=== PATIENT | male | born 1975 | race Caucasian/White ===

== ENCOUNTER 2023-07-22 06:22 | Inpatient (IN) | payer OTHER, SELFPAY ==
[2023-07-12 08:49] LABS: Hematocrit 47.3 % (39.0-52.0); Hemoglobin 16.6 g/dL (13.0-18.0); Mean Corp Hgb Conc. 35.1 g/dL (33.0-37.0); Mean Corpuscular Hgb 29.9 pg (27.0-31.0); Mean Corpuscular Volume 85.1 fL (80.0-94.0); Mean Platelet Volume 9.8 fL (7.4-10.4); Platelet Count 255 10^3/uL (130-400); Red Blood Cell Count 5.56 10^6/uL (4.70-6.10); Red Cell Dist. Width 12.3 % (11.5-14.5); White Blood Cell Count 6.8 10^3/uL (4.8-10.8)
[2023-07-12 09:03] LABS: INR 1.01; PT 13.5 Sec (11.4-14.6)
[2023-07-12 09:04] LABS: APTT 33.8 Sec (23.4-35.0)
[2023-07-12 09:15] LABS: ALT (SGPT) 46 U/L (0-50); AST (SGOT) 35 U/L (17-59); Albumin 4.5 g/dl (3.5-5.0); Alkaline Phosphatase 73 U/L (38-126); Blood Urea Nitrogen 12 mg/dl (9-20); Carbon Dioxide 28 mmol/L (22-30); Chloride 104 mmol/L (98-107); Glucose 111 mg/dl (70-99); Potassium 4.4 mmol/L (3.5-5.1); Sodium 137 mmol/L (135-145); Total Bilirubin 0.7 mg/dl (0.2-1.3); Total Protein 7.2 g/dl (6.3-8.2); eGFR > 60.00
[2023-07-12 12:48] LABS: Glycohemoglobin (HgbA1c) 6.2 % (4.0-5.6)
[2023-07-22] MEDS: ENTEREG 12 MG PO (07:01)
[2023-07-22] MEDS: TYLENOL 1000 MG PO (07:01)
[2023-07-22] MEDS: HEPARIN 5000 UNITS SC (07:02)
[2023-07-22] MEDS: NORMOSOL-R 1000 IV ×3 (07:06→21:55)
[2023-07-22] MEDS: INVANZ 60 MG IV (07:48)
--- NOTE | 2023-07-22 11:55 | W.IMMPOSTOP ---
Surgical Immed Post Op Note
-
Primary Surgeon: Raphael Tineo MD
Assistants: MICHAEL Crocker and EDMUNDO Smith
Pre-op Diagnosis: Recurrent sigmoid diverticulitis
Post-op Diagnosis: Same
Procedure Performed: Robotic sigmoid resection with intracorporeal anastomosis
Anesthesia Type: GET
Specimen / Cultures: Sigmoid colon (suture is proximal)
Estimated Blood Loss: 15cc
Complications: none
Operative Findings: Short segment of chronic inflammation of the sigmoid colon adherent to the left pelvic sidewall
28mm EEA
Normal leak test
His partner was updated.
[2023-07-22] MEDS: SUBLIMAZE 50 MCG IV ×2 (12:38→13:05)
[2023-07-22] MEDS: ZOFRAN 4 MG IV (13:30)
--- NOTE | 2023-07-22 13:48 | SUR.PHASEI ---
Report to Sarah at 1348. Amadou hightower RN BSN.
--- NOTE | 2023-07-22 14:37 | PTCARENOTE ---
Received pt from PACU in bed. Pt drowsy but easily arousable and oriented. Denies pain. Pt on 3L NC, sating 88%, increased to 6L sating 93%, continuous pulse ox as ordered. Snoring noted when pt is asleep. Otherwise, VSS. 4 lap sites and 1 small low
transverse incision noted, approximated w/ NENO Angel. Tellez patent. Full assessment and admission as documented.
[2023-07-22] MEDS: TORADOL IV (14:41)
[2023-07-22] MEDS: TYLENOL 650 MG PO ×2 (16:13→20:15)
[2023-07-22] MEDS: TORADOL 15 MG IV (18:22)
[2023-07-22] MEDS: TYLENOL PO (23:58)
[2023-07-23] MEDS: TYLENOL 650 MG PO ×6 (00:37→20:21)
[2023-07-23] MEDS: TORADOL 15 MG IV ×4 (00:37→18:00)
[2023-07-23 06:55] LABS: % Basophils 0.1 % (0-2); % Immature Granulocytes 0.6 % (0-0.5); % Lymphocytes 6.8 % (20.5-51.1); % Monocytes 10.7 % (1.7-9.3); % Neutrophils 81.8 % (42.2-75.2); Absolute Immature Granulocytes 0.1 10^3/uL (0-0.05); Absolute Lymphocytes 0.8 10^3/uL (1.2-3.4); Absolute Monocytes 1.2 10^3/uL (0.1-0.6); Hematocrit 40.7 % (39.0-52.0); Mean Corp Hgb Conc. 34.4 g/dL (33.0-37.0); Mean Corpuscular Hgb 29.7 pg (27.0-31.0); Mean Corpuscular Volume 86.2 fL (80.0-94.0); Nucleated Red Blood Cells % 0 % (-); Platelet Count 225 10^3/uL (130-400); Red Blood Cell Count 4.72 10^6/uL (4.70-6.10); Red Cell Dist. Width 12.6 % (11.5-14.5); White Blood Cell Count 11.1 10^3/uL (4.8-10.8)
[2023-07-23 07:27] LABS: Blood Urea Nitrogen 12 mg/dl (9-20); Calcium 7.6 mg/dl (8.4-10.2); Carbon Dioxide 25 mmol/L (22-30); Chloride 103 mmol/L (98-107); Estimated Creatinine Clearance > 125 ml/min; Glucose 113 mg/dl (70-99); Sodium 137 mmol/L (135-145); eGFR > 60.00
[2023-07-23] MEDS: PEPCID 20 MG PO (08:02)
[2023-07-23] MEDS: CLARITIN 10 MG PO (08:02)
[2023-07-23] MEDS: ENTEREG 12 MG PO ×2 (08:03→20:21)
[2023-07-23] MEDS: NORMOSOL-R 1000 IV ×2 (08:04→17:59)
--- NOTE | 2023-07-23 11:58 | CM ---
Reviewed the chart notes and spoke with the patient at the bedside. The patient resides with his significant other in a two story home with six steps to enter. The patient reports no DME/VN/SNF ini the past. The patient confirmed his pharmacy of
choice is [facility]. The patient anticipates being discharged to home with no additional needs. CM continues to be available to patient/family and is monitoring medical plan for needs at discharge.
Plan: Discharge to home when medically stable.
--- NOTE | 2023-07-23 12:10 | W.PN.CRS1 ---
Addendum entered and electronically signed by Moises Mcmillan MD 07/23/23 13:18:
I saw and examined the patient.
The PA's note was reviewed and I agree with the note.
Comment:
Seen in am with PA.
No nausea.
Pain control ok.
Vitals and labs ok.
Abdominal incisions looked good.
Trial clears.
D/c reynoso.
Original Note:
Today's Communication / Plan
-
lovenox
clears
wean o2
d/c reynoso
Assessment/Plan
-
POD#1 �Robotic sigmoid resection with intracorporeal anastomosis
1. Vitals normal. Labs normal.
2. Advance diet to clears.
3. Discontinue reynoso.
4. OOB as tolerated.
5. Wean O2 as tolerated.
6. OR pathology pending.
7. Pain control: Tylenol/Toradol standing, Dilaudid PRN.
8. Lovenox for DVT prophylaxis.
9. D/C IVFs when tolerating po intake.
Subjective Data
Subjective Data
Date of Service: July 23, 2023
Patient states he is hungry. He denies nausea or vomiting. He would like the Reynoso catheter out. He generally has no complaints.
Objective Data
-
Vital Signs
Temp Pulse Resp BP Pulse Ox
98.0 F 87 17 142/81 95
07/23/23 11:31 07/23/23 11:31 07/23/23 11:31 07/23/23 11:31 07/23/23 11:56
Intake & Output
07/22/23 07/23/23 07/24/23
06:59 06:59 06:59
Intake Total 390 / 390
Output Total 3120 / 3120
Balance -2730 / -2730
Intake:
Oral fluids 240 / 240
IV fluids (Total) 150 / 150
Norm 100 / 100
Normosol-R 1,000 ml @ 100 mls/ 50 / 50
hr IV .Q10H [facility] Rx#:[id number]
IV piggybacks 0 / 0
Output:
Urine, Reynoso 3120 / 3120
Lab Results
07/23/23 05:51
07/23/23 05:51
Physical Exam
-
General: No Acute Distress and AOx3
Abdomen: Soft, Non Distended and Non Tender
Skin: Warm and Dry
Incision: Clear, Dry, Intact
[2023-07-23] MEDS: LOVENOX 40 MG SC (17:02)
[2023-07-24] MEDS: ZOFRAN 4 MG IV (00:28)
[2023-07-24] MEDS: DILAUDID 0.5 MG IV (00:28)
[2023-07-24] MEDS: TORADOL 15 MG IV ×4 (00:29→20:17)
[2023-07-24] MEDS: TYLENOL 650 MG PO ×5 (00:29→20:17)
[2023-07-24] MEDS: TYLENOL PO (04:25)
[2023-07-24] MEDS: CLARITIN 10 MG PO (08:50)
[2023-07-24] MEDS: PEPCID 20 MG PO (08:51)
[2023-07-24] MEDS: ENTEREG PO ×3 (08:51→20:36)
--- NOTE | 2023-07-24 12:35 | W.PN.CRS1 ---
Addendum entered and electronically signed by Moises Mcmillan MD 07/24/23 14:12:
I saw and examined the patient.
The PA's note was reviewed and I agree with the note.
Comment:
Seen earlier with PA.
Tolerating fulls. Had BMs. Pain control reasonable.
Vitals reasonable.
Abdomen mildly distended but soft. Incisions look good.
Diet advanced to low residue.
Wean O2.
Original Note:
Today's Communication / Plan
-
low residue
Assessment/Plan
-
POD#2 �Robotic sigmoid resection with intracorporeal anastomosis
1. Vitals normal.
2. Advance diet to low residue.
3. Voiding post reynoso removal.
4. OOB as tolerated.
5. Wean O2 as tolerated.
6. OR pathology pending.
7. Pain control: Tylenol/Toradol standing, change Dilaudid IV to Roxicodone po prn.
8. Lovenox for DVT prophylaxis.
Subjective Data
Subjective Data
Date of Service: July 24, 2023
Patient states he has bowel movements overnight. He has some pain. He has loose BMS that were burgundy and then turned to brown liquid. He has been weaned off oxygen.
Objective Data
-
Vital Signs
Temp Pulse Resp BP Pulse Ox
98.8 F 79 18 131/79 97
07/24/23 08:00 07/24/23 08:00 07/24/23 08:00 07/24/23 08:00 07/24/23 08:45
Intake & Output
07/23/23 07/24/23 07/25/23
06:59 06:59 06:59
Intake Total 390 / 390 3120 / 3120
Output Total 3120 / 3120 2049
Balance -2730 / -2730 1070 / 1070
Intake:
Oral fluids 240 / 240 1320 / 1320
IV fluids (Total) 150 / 150 1800 / 1800
Norm 100 / 100
Normosol-R 1,000 ml @ 100 mls/ 50 / 50
hr IV .Q10H [facility] Rx#:[id number]
IV piggybacks 0 / 0 0 / 0
Output:
Liquid stool amount 300 / 300
Rectum 300 / 300
Urine, Reynoso 3120 / 3120 800 / 800
Urine, Voided 950 / 950
Other:
Number of approximated SMALL 2
amounts of urine
Number of approximated MODERATE 1
amounts of urine
Lab Results
07/23/23 05:51
07/23/23 05:51
Physical Exam
-
General: No Acute Distress and AOx3
Abdomen: Soft, Non Distended and Non Tender
Skin: Warm and Dry
Incision: Clear, Dry, Intact
[2023-07-24] MEDS: LOVENOX 40 MG SC (18:18)
[2023-07-24] MEDS: ROXICODONE 10 MG PO (21:27)
[2023-07-25] MEDS: TYLENOL 650 MG PO ×3 (00:24→08:49)
[2023-07-25] MEDS: TORADOL 15 MG IV ×2 (00:25→06:10)
[2023-07-25] MEDS: ROXICODONE 5 MG PO ×2 (04:00→12:45)
[2023-07-25] MEDS: ENTEREG PO (08:49)
[2023-07-25] MEDS: CLARITIN 10 MG PO (08:49)
[2023-07-25] MEDS: PEPCID 20 MG PO (08:49)
--- NOTE | 2023-07-25 10:29 | W.PN.CRS1 ---
Today's Communication / Plan
-
Discharge
Assessment/Plan
-
POD#3 �Robotic sigmoid resection with intracorporeal anastomosis
1. Vitals normal except for O2 desaturation at night.
2. Tolerating a low residue diet.
3. Voiding post reynoso removal.
4. OOB as tolerated.
5. Wean O2 as tolerated.
6. OR pathology pending.
7. Pain control: Tylenol/Toradol standing, change Dilaudid IV to Roxicodone po prn.
8. Lovenox for DVT prophylaxis.
9. Okay for discharge today. All discharge instructions discussed with patient who is in agreement. All questions answered.
Subjective Data
Subjective Data
Date of Service: July 25, 2023
Patient states he feels well. His pain is controlled. He is tolerating a diet. He has bowel function. He required oxygen overnight from what sounds like sleep apnea. He denies shortness of breath and feels as he normally does at home.
Objective Data
-
Vital Signs
Temp Pulse Resp BP Pulse Ox
98.2 F 71 18 141/85 97
07/25/23 07:40 07/25/23 07:40 07/25/23 07:40 07/25/23 07:40 07/25/23 08:45
Intake & Output
07/24/23 07/25/23 07/26/23
06:59 06:59 06:59
Intake Total 3120 / 3120 720 / 720
Output Total 2049 900 / 900
Balance 1070 / 1070 -180 / -180
Intake:
Oral fluids 1320 / 1320 720 / 720
IV fluids (Total) 1800 / 1800
IV piggybacks 0 / 0
Output:
Liquid stool amount 300 / 300
Rectum 300 / 300
Urine, Reynoso 800 / 800
Urine, Voided 950 / 950 900 / 900
Other:
Number of approximated SMALL 2
amounts of urine
Number of approximated MODERATE 1 3
amounts of urine
Lab Results
07/23/23 05:51
07/23/23 05:51
Physical Exam
-
General: No Acute Distress and AOx3
Abdomen: Soft, Non Distended and Non Tender
Incision: Clear, Dry, Intact
--- NOTE | 2023-07-25 10:43 | W.DS.TRANS ---
DC Summary - [employer]
-
Discharge Instructions:
Sleep Apnea Risk Low
Discharge Diagnosis/Procedures Robotic sigmoid resection with intracorporeal
anastomosis
Diet Low Residue
Activity No strenuous activity
Additional Activity No lifting over 10 pounds
Driving Restrictions No driving for 1 week
Bathing Restrictions OK to Shower
Wound Care Glute naturally fall off. Do not pick at
incisions.
Instructions: Low Fiber Diet
Stand-Alone Forms:
Changes to Home Medications: Yes
Discharge Medications:
DC Medications w/original date entered in [facility]
famotidine 20 mg tablet 20 mg PO DAILY Gastrointestinal issue 08/01/20
loratadine 10 mg tablet 10 mg PO DAILY Allergies 08/01/20
fluticasone propionate 50 mcg/actuation nasal spray,suspension 1 spray intranasal DAILY Allergies 12/20/20
albuterol sulfate 90 mcg/actuation aerosol inhaler (ProAir HFA) 2 puff inhalation DIRECTED Lung/Breathing Issues 07/22/23
metronidazole 500 mg tablet 500 mg PO DIRECTED Infection 07/22/23
neomycin 500 mg tablet 500 mg PO DIRECTED Infection 07/22/23
sodium sul 1.479 gram-potas ch 0.188 gram-magnes sul 0.225 gram tablet (Sutab) 0 tab PO PER PKG DIR Supplement 07/22/23
oxycodone 5 mg tablet 5 mg PO Q6H PRN Pain #20 tabs 07/25/23
Home Medication Changes
oxycodone 5 mg tablet 5 mg PO Q6H PRN Pain #20 tabs 07/25/23
Pending Results: Yes
Additional Pending Results:
OR pathology
[2023-07-25] MEDS: TYLENOL PO (12:45)
== END 2023-07-25 13:07 | disposition home or self-care (01) | DRG 331 ==
LOC: 2 SOUTH 06:22
PROVIDERS: ADMITTING PHYSICIAN Surgery; FAMILY PHYSICIAN Family Medicine
PROC: 0DTN4ZZ Resection of Sigmoid Colon, Percutaneous Endoscopic Approach (ICD-10-PCS; 2023-07-22)
PROC: 8E0W4CZ Robotic Assisted Procedure of Trunk Region, Percutaneous Endoscopic Approach (ICD-10-PCS; 2023-07-22)
DX: K57.32 Diverticulitis of large intestine without perforation or abscess without bleeding (principal)
CPT/HCPCS: 88307; 36415; 80048; 80053; 83036; 85025; 85027; 85610; 85730; 86850; 86900; 86901; 87070; 93005; J1335

== ENCOUNTER → 2023-08-10 18:50 | Outpatient (REF) | payer OTHER, SELFPAY ==
[2023-08-25 12:27] LABS: HPV, High Risk Not Detected; HPV, High Risk Source Anal
== END ==
LOC: CLAB 18:50
PROVIDERS: ATTENDING PHYSICIAN Surgery
DX: Z11.51 Encounter for screening for human papillomavirus (HPV) (principal)
CPT/HCPCS: 87624; 88112

== ENCOUNTER 2024-08-24 17:56 | Emergency (ER) | payer OTHER, SELFPAY ==
[2024-08-24 18:18] VITALS: BP 193/129
[2024-08-24 18:36] LABS: % Eosinophils 2.9 % (0-6); % Immature Granulocytes 0.3 % (0-0.5); % Lymphocytes 22.8 % (20.5-51.1); % Monocytes 9.4 % (1.7-9.3); % Neutrophils 63.6 % (42.2-75.2); Absolute Basophils 0.1 10^3/uL (0-0.2); Absolute Eosinophils 0.3 10^3/uL (0-0.7); Absolute Lymphocytes 2.1 10^3/uL (1.2-3.4); Absolute Monocytes 0.9 10^3/uL (0.1-0.6); Absolute Neutrophils 5.9 10^3/uL (1.4-6.5); Hematocrit 47.2 % (39.0-52.0); Hemoglobin 16.4 g/dL (13.0-18.0); Mean Corp Hgb Conc. 34.7 g/dL (33.0-37.0); Mean Corpuscular Hgb 29.4 pg (27.0-31.0); Mean Corpuscular Volume 84.7 fL (80.0-94.0); Mean Platelet Volume 9.8 fL (7.4-10.4); Nucleated Red Blood Cells % 0 % (-); Platelet Count 253 10^3/uL (130-400); Red Blood Cell Count 5.57 10^6/uL (4.70-6.10); Red Cell Dist. Width 12.3 % (11.5-14.5); White Blood Cell Count 9.3 10^3/uL (4.8-10.8)
[2024-08-24 18:54] LABS: ALT (SGPT) 66 U/L (0-50); AST (SGOT) 39 U/L (17-59); Albumin 4.9 g/dl (3.5-5.0); Alkaline Phosphatase 102 U/L (38-126); Blood Urea Nitrogen 16 mg/dl (9-20); Calcium 9.6 mg/dl (8.4-10.2); Carbon Dioxide 25 mmol/L (22-30); Chloride 102 mmol/L (98-107); Glucose 139 mg/dl (70-99); Sodium 137 mmol/L (135-145); Total Bilirubin 0.6 mg/dl (0.2-1.3); Total Protein 7.4 g/dl (6.3-8.2); eGFR > 60.00
[2024-08-24 19:00] LABS: Troponin I < 0.012 ng/ml
== END 2024-08-24 20:04 ==
LOC: EMR 17:56
PROVIDERS: EMERGENCY PHYSICIAN Emergency Medicine
DX: R10.9 Unspecified abdominal pain (principal); R00.0 Tachycardia, unspecified; Z53.21 Procedure and treatment not carried out due to patient leaving prior to being seen by health care provider
CPT/HCPCS: 99281; 80053; 84484; 85025; 93005

== ENCOUNTER 2024-10-11 13:56 | Emergency (ER) | payer OTHER, SELFPAY ==
[2024-10-11 14:05] VITALS: BP 175/87
[2024-10-11 14:25] LABS: Urine Albumin 1+ (Neg - Trace); Urine Bilirubin Negative (Negative); Urine Character Clear (Clear); Urine Color Yellow; Urine Glucose Negative (Negative); Urine Ketone Negative (Negative); Urine Leukocyte Negative (Negative); Urine Nitrite Negative (Negative); Urine Occult Blood 4+ (Negative); Urine Specific Gravity 1.025 (<1.030); Urine Urobilinogen Negative (Neg - 1+)
[2024-10-11 14:27] LABS: % Basophils 0.6 % (0-2); % Eosinophils 1.6 % (0-6); % Immature Granulocytes 0.3 % (0-0.5); % Lymphocytes 18.4 % (20.5-51.1); % Monocytes 6.9 % (1.7-9.3); % Neutrophils 72.2 % (42.2-75.2); Absolute Basophils 0.1 10^3/uL (0-0.2); Absolute Eosinophils 0.2 10^3/uL (0-0.7); Absolute Lymphocytes 1.7 10^3/uL (1.2-3.4); Absolute Monocytes 0.6 10^3/uL (0.1-0.6); Absolute Neutrophils 6.7 10^3/uL (1.4-6.5); Hematocrit 48.6 % (39.0-52.0); Hemoglobin 16.8 g/dL (13.0-18.0); Mean Corp Hgb Conc. 34.6 g/dL (33.0-37.0); Mean Corpuscular Hgb 29.2 pg (27.0-31.0); Mean Corpuscular Volume 84.5 fL (80.0-94.0); Mean Platelet Volume 9.7 fL (7.4-10.4); Nucleated Red Blood Cells % 0 % (-); Platelet Count 270 10^3/uL (130-400); Red Blood Cell Count 5.75 10^6/uL (4.70-6.10); Red Cell Dist. Width 12.3 % (11.5-14.5); White Blood Cell Count 9.3 10^3/uL (4.8-10.8)
[2024-10-11 14:36] LABS: ALT (SGPT) 71 U/L (0-50); AST (SGOT) 33 U/L (17-59); Alkaline Phosphatase 76 U/L (38-126); Blood Urea Nitrogen 14 mg/dl (9-20); Calcium 10.5 mg/dl (8.4-10.2); Carbon Dioxide 26 mmol/L (22-30); Chloride 103 mmol/L (98-107); Glucose 132 mg/dl (70-99); Lipase 178 U/L (23-300); Potassium 4.4 mmol/L (3.5-5.1); Sodium 140 mmol/L (135-145); Total Bilirubin 0.7 mg/dl (0.2-1.3); eGFR > 60.00
[2024-10-11 14:39] LABS: Urine Red Blood Cell 26-30 /HPF (0-2)
[2024-10-11 14:40] LABS: Urine Bacteria Few (Negative); Urine Mucus Many; Urine White Cell 0-2 /HPF (0-5)
--- NOTE | 2024-10-11 16:03 | ED.GENMED ---
History of Present Illness
General
Chief Complaint: Back Pain
Source: patient
Exam Limitations: none
Time Seen by Provider: 10/11/24 15:33
Nursing documentation reviewed up to this point in time: agreed with
History of Present Illness
History of Present Illness:
Patient is a 49-year-old male with history hypertension, hyperlipidemia presenting to the emergency department for evaluation of left flank pain. Patient describes intermittent pain in his left flank yesterday radiating around to his left abdomen.
Symptoms were very severe today after lunch prompting his visit to the emergency department. He does endorse associated nausea although has had no episodes of vomiting. No fever, chills, dysuria, or gross hematuria. Patient denies any chest pain
or shortness of breath.
At this time patient states symptoms are essentially improved and patient denies any current pain.
He does have a past history of kidney stones.
Past History
Past History
ED Past Medical History: Other (Kidney stones, Diverticulitis); Negative Asthma, HTN, Hypercholesterolemia or NIDDM
ED Past Surgical History: None
Social History
Tobacco: Former smoker
Alcohol: Occasional
Drug: None
Personal: Single (same sex partner)
Living: with family
Employment: Employed
Review of Systems
Review of Systems
Allergies reviewed?: Yes
All Other Systems: ROS reviewed and negative except as documented in HPI and ROS
Phy Exam
Physical Exam
Physical Exam:
Vitals: Hypertensive, otherwise vital signs stable. Afebrile
General: Patient is well appearing, no acute distress
Skin: Warm and dry, no rashes or lesions
Head: Normocephalic, atraumatic
Eyes: Sclera nonicteric. EOMs intact. No nystagmus.
Throat: Protecting airway
Neck: Normal ROM, no cervical spine tenderness, no meningismus
Cardiac: Regular rate and rhythm, no murmurs.
Pulm: Normal respiratory effort, no wheezes, rales, rhonchi heard on exam.
Abdomen: Abdomen soft. No abdominal tenderness. No CVA tenderness or rash.
Extremities: No evidence of cyanosis or edema
Neuro: AAOx3. Grossly intact.
Psychiatric: Normal affect.
Course
Orders/Labs/Results
Orders:
Orders
10/11/24 14:14
Complete Blood Count/With Diff Urgent
Comprehensive Metabolic Panel Urgent
Lipase Urgent
Urinalysis Reflex To Culture Urgent
Date Specimen was Collected: 10/11/24
Time Specimen was Collected: 14:08
Urine Microscopic Reflex Cult Urgent
10/11/24 15:52
Abdomen/Pelvis wo Contrast CT [CT Abd/pelvis Wo Iv Cont] Urgent
Comment:
Reason For Exam: L flank pain
0.9% Sodium Chloride 1000 ml [Nss] 1,000 ml IV BOLUS
Abnormal Lab Results
10/11/24
14:14
Absolute Neuts (auto) 6.7 H 10^3/uL
(1.4-6.5)
Lymphocytes % 18.4 L %
(20.5-51.1)
Glucose 132 H mg/dl
(70-99)
Calcium 10.5 H mg/dl
(8.4-10.2)
ALT 71 H U/L
(0-50)
Ur Occult Blood Reflex 4+ A
(Negative)
Urine RBC 26-30 A /HPF
(0-2)
Urine Bacteria (Reflex) Few A
(Negative)
Urine Albumin (Reflex) 1+ A
(Neg - Trace)
10/11/24 14:14
10/11/24 14:14
Vital Signs
Initial and Last Documented VS:
Initial Vital Signs
Temp Pulse Resp BP Pulse Ox
97.6 F 87 18 175/87 97
10/11/24 14:05 10/11/24 14:05 10/11/24 14:05 10/11/24 14:05 10/11/24 14:05
Last Documented Vital Signs
Temp Pulse Resp BP Pulse Ox
97.6 F 81 16 158/77 97
10/11/24 14:05 10/11/24 18:55 10/11/24 18:55 10/11/24 18:55 10/11/24 18:55
MDM/Problems Addressed
Differential Diagnosis Includes:
Not limited to: Nephrolithiasis, pyelonephritis, UTI, muscle strain, zoster, etc.
MDM/Problems Addressed:
49-year-old male presenting for evaluation of left flank pain associated with nausea. No anorexia or fevers. He has a history of kidney stones. Symptoms resolved by arrival to the emergency department. Vitals and physical exam as above. Labs
obtained prior to my assessment without any clinically significant abnormalities. There is no leukocytosis or renal insufficiency. However�urinalysis does show RBCs without evidence of infection. At this point patient remains asymptomatic. Given
history and RBCs in urine�suspect likely kidney stone which he may have passed prior to arrival. However�will obtain CT without contrast further evaluation. Will give IV fluids. Patient declines any analgesia at this time.
Update: CT scan shows no evidence of obstructing renal calculi. He does see findings of possible epiploic appendagitis of the descending colon which interestingly in office in the area where patient was having discomfort. Overall suspicion remains
likely kidney stone which I suspect patient passed prior to emergency department. It is possible that epiploic appendagitis may be contributing to patient symptoms. Patient remains very comfortable and well-appearing in no pain. CT findings were
discussed with patient at length and he was given report to take home. Recommended urology follow-up given hematuria noted on urinalysis with history of kidney stones. Do not suspect acute infectious process. At this point�feel stable for
discharge home with return precautions and urology follow-up outpatient. Patient comfortable with plan.
Chronic conditions affecting care:
Diabetes, hypertension
Acute Exacerbation and/or Progression of Chronic Illness:
Acutely hypertensive
*Radiology
Radiology exam reviewed: radiology read reviewed
*Pulse Oximetry
Patient hypoxic: no
*EKG
Interpreted by ED Provider?: NA
*Spot Sprayer Interpretation
Rate: Spot Sprayer- N/A
*Critical Care Note
Total Time (30-74mins, 75-104mins- exclusive of procedures): Not Applicable
ED Attending Note
-
Portions of this chart may have been created with voice recognition software.� Occasional wrong word or��sound alike� substitutions may have occurred due to the inherent limitations of voice recognition software.
Discharge Plan
Departure
Patient Disposition: Home (Routine Discharge)
Date of Disposition: 10/11/24
Time of Disposition: 19:11
Patient with high blood pressure during this ER visit?: Yes
Condition: Good
Covid-19: Not Applicable
Discharge Problem:
Left flank pain
Instructions: Flank Pain (DC), Blood in the urine (hematuria) - ED discharge instructions, BLOOD PRESSURE
Prescriptions:
No Action
famotidine 20 MG tablet
20 mg PO DAILY
loratadine 10 MG tablet
10 mg PO DAILY
fluticasone propionate 1 SPRAY spray,suspension
1 spray intranasal DAILY
albuterol sulfate [ProAir HFA] 90 mcg/actuation Hfa Aerosol Inhaler
2 puff INHALATION DIRECTED
oxycodone 5 mg tablet
5 mg PO Q6H PRN (Reason: Pain) Qty: 20 0RF
Referrals:
Ulises Putnam MD [Family Provider] -
Wali Mejia MD [Active] - Call in 1-3 days for appt
Activity Restrictions/Additional Instructions:
Return to the emergency department any fevers, chills, persistent/worsening abdominal/flank pain, nausea/vomiting, inability to produce urine, or any other concerns
- As discussed�your lab work showed mildly elevated calcium levels. One of your liver test was mildly elevated, as well. You should have these rechecked with your primary care to ensure trending down.
- Your urine showed evidence of red blood cells. You should follow-up with urology for further evaluation/management. Contact information has been provided for you above.
- Stay well-hydrated. Take Motrin as needed for pain
Monitor your symptoms closely and return to the emergency department with any acute worsening/new symptoms or any other concerns
Interventions
Interventions:
*Risk Screen - Suicide Last Done: 10/11/24 14:05
*General Assessment Last Done: 10/11/24 14:05
*Neglect/Abuse Screening Last Done: 10/11/24 14:05
*Nursing Disposition Last Done: 10/11/24 19:33
AB-Ycchtz-Ymhnvwkqre Assessment Last Done: 10/11/24 16:21
ED-Male Genitourinary Assessment Last Done: 10/11/24 16:21
ED-Musculoskeletal Assessment Last Done: 10/11/24 16:21
Discharge Date and Time
Discharge Date/Time: 10/11/24 19:33
Print Language: LIBYAN
[2024-10-11] MEDS: NSS 1000 IV (16:04)
[2024-10-11 18:55] VITALS: BP 158/77
== END 2024-10-11 19:33 | disposition home or self-care (01) ==
LOC: EMR 13:56
PROVIDERS: EMERGENCY PHYSICIAN Student in an Organized Health Care Education/Training Program; FAMILY PHYSICIAN Family Medicine
DX: R10.32 Left lower quadrant pain (principal); R11.0 Nausea; M54.9 Dorsalgia, unspecified; I10 Essential (primary) hypertension; E78.5 Hyperlipidemia, unspecified; K57.92 Diverticulitis of intestine, part unspecified, without perforation or abscess without bleeding; E11.9 Type 2 diabetes mellitus without complications; Z87.442 Personal history of urinary calculi; Z87.891 Personal history of nicotine dependence; Z98.0 Intestinal bypass and anastomosis status; Z86.16 Personal history of COVID-19
CPT/HCPCS: 99284; 96360; 74176; 80053; 81003; 81015; 83690; 85025